=== PATIENT | male | born 1950 | race Caucasian/White ===

== ENCOUNTER 2020-12-17 09:28 | Emergency (ER) | payer MEDICARE, SELFPAY ==
[2020-12-17 09:35] VITALS: BP 146/81; PULSE 80; RESP 18; TEMP 35.9; O2SAT 99; BMI 26.6
--- NOTE | 2020-12-17 10:08 | ED_ITS ---
HPI - Male Genitourinary General Chief complaint: Urogenital-Male Stated complaint: Blood in urine Time Seen by Provider: 12/17/20 10:05 Source: patient Mode of arrival: ambulatory Limitations: no limitations History of Present Illness HPI Narrative: 70-year-old male history of prostate cancer last dose of radiation was back in 2019 presents emergency department complaining of painless hematuria. Patient noticed blood in his urine for the past several days. Patient denies pain fever urgency nausea vomiting or diarrhea. Patient states he never had this problem in the past. Patient states he lives in [place] most of the year does come here for [place] in for 1 month in April. He does not have a urologist here. Related Data Allergies Allergy/AdvReac Type Severity Reaction Status Date / Time No Known Allergies Allergy Verified 12/17/20 09:34 Review of Systems Review of Systems: Review of systems: General: Patient denies any fever chills recent illness or falls Musculoskeletal: Denies back pain or body aches or other injuries HEENT: denies headache, runny nose, ear pain Respiratory: denies shortness of breath, cough Cardiovascular: no chest pain or palpitations : Hematuria denies dysuria, frequency Abdomen: no nausea vomiting denies abdominal pain Extremities: no swelling, no pain Skin: no diaphoresis Yes all other systems are reviewed and are negative PMFSH Past Medical History Medical History (Updated 12/17/20 @ 10:13 by Evert Baer DO) Hyperlipidemia Prostate CA Social History Social History Advance Directives: Yes Advance Directives Information Provided: Yes Advance Directives on File: No Physical Exam Vital Signs: Vital Signs: Last Vital Signs Temp 96.7 F L 12/17/20 09:35 Pulse 80 12/17/20 09:35 Resp 18 12/17/20 09:35 BP 146/81 H 12/17/20 09:35 Pulse Ox 99 12/17/20 09:35 Body Mass Index 26.6 General: Well-appearing well-nourished in no signs of distress HEENT: Normocephalic atraumatic Neck: No signs of JVD, no masses no tenderness or lymphadenopathy Cardiovascular: Regular rate and rhythm Respiratory: Clear to auscultation bilaterally Abdomen: Soft nontender no masses Extremities: Normal pedal pulses no signs of edema Skin: Dry warm no rashes Back: No tenderness full ROM MDM - Male Genitourinary MDM Narrative Medical decision making narrative: Concern for bladder cancer versus UTI verses effects of radiation. I will send off urine is sample and have patient follow- up with urology. Use complete minimal discharge home. Lab Data Labs: Lab Results 12/17/20 Range/Units 10:46 Urine Color YELLOW Urine Appearance CLEAR Urine pH 6.0 (5.0-8.0) Ur Specific [place] 1.010 (1.005-1.025) Urine Protein NEG (NEG-TRACE) MG/DL Urine Glucose (UA) NEG (NEG) MG/DL Urine Ketones NEG (NEG) MG/DL Urine Blood NEG (NEG) Urine Nitrite NEG (NEG) Ur Leukocyte Esterase NEG (NEG) Discharge Plan Discharge Clinical Impression: Hematuria Qualifiers: Hematuria type: gross Qualified Code(s): R31.0 - Gross hematuria Patient Disposition: Home, Self-Care Instructions: Hematuria (ED) Additional Instructions: Please call to follow up . Referrals: José Antonio Calixto MD [Physician] - 2 days
[2020-12-17 11:00] LABS: Glucose Urine UA NEG (NEG); Leukocyte Esterase Urine NEG (NEG); Nitrite Urine NEG (NEG); Urine Blood NEG (NEG); Urine Ketones NEG (NEG); Urine Protein NEG (NEG-TRACE)
[2020-12-17 11:03] LABS: Appearance Urine CLEAR; Color Urine YELLOW
== END 2020-12-17 11:53 | disposition home or self-care (01) ==
PROVIDERS: Emergency Provider Student in an Organized Health Care Education/Training Program
DX: R31.0 Gross hematuria (principal); Z85.46 Personal history of malignant neoplasm of prostate
CPT/HCPCS: 81003; 99283